=== PATIENT | male | born 1970 | race Caucasian/White ===

== ENCOUNTER 2021-10-21 10:05 | Emergency (ER) | payer MEDICARE, SELFPAY ==
[2021-10-21 10:30] VITALS: BP 134/87; PULSE 79; RESP 16; TEMP 36.7; O2SAT 97; BMI 27.3
--- NOTE | 2021-10-21 14:21 | ED_ITS ---
HPI - URI/Sore Throat General: Chief Complaint: Upper Respiratory Infection Stated Complaint: WEEZING, COUGHING, RUNNY NOSE Time Seen by Provider: 10/21/21 10:14 History of Present Illness: HPI Narrative: Patient had drainage and sinus problems last couple 3 days has wheezing and is upper respiratory when he coughs really hard had a Covid test Monday that was negative MD elicited complaint: cough, nasal congestion and sinus pain Consistency: intermittent Severity: mild Description of mucous: watery Able to tolerate fluids by mouth: Yes Exacerbating factors: nothing Associated symptoms: Reports nasal congestion; Deny abdominal pain, chills, chest pain, fever(s), headache(s), nausea or vomiting Review of Systems Const: Denies: fever(s), chills or body aches Eyes: Denies: change in vision or blurry vision ENMT: Reports: nasal congestion; Denies: throat pain Card: Denies: chest pain or dyspnea on exertion Resp: Reports: non-productive cough and wheezing (Possible); Denies: dyspnea or productive cough GI: Denies: abdominal pain, nausea or vomiting : Denies: difficulty urinating Musc: Denies: extremity pain Skin/Breast: Denies: rash Neuro: Denies: headache(s) Psych: Denies: anxiety or depression Madi/Lymph: Denies: easy bruising PFSH ED PFSH: Social History (Updated 05/08/21 @ 11:47 by Anson Watson LPN) Smoking and tobacco status: former smoker Second hand smoke exposure: No Alcohol intake: never Desire information about alcohol rehabilitation?: No Desire information about substance/drug rehabilitation?: No Physical Exam Const: COMMON NORMALS: no acute distress, average body habitus and patient oriented x3 HENMT: COMMON NORMALS: normocephalic HEAD & SCALP: normal to inspection and normocephalic FACE & SINUS: sinus tenderness maxillary Eye: COMMON NORMALS: conjunctivae normal GENERAL EYE: appearance normal, both eyes and all related structures CONJUNCTIVA: Yes conjunctivae normal Neck/C-Spine: COMMON NORMALS: no JVD Chest: COMMONS NORMALS: normal inspection of the chest Resp: COMMON NORMALS: normal respiratory effort and clear to auscultation bilaterally AUSCULTATION: clear to auscultation bilaterally OTHER: No wheezing noted, patient can make the sound of for squeezing with his upper airway when he breathes out really hard but no wheeze noted in lower respiratory Cardio: COMMON NORMALS: no JVD, regular rate and regular rhythm RATE: regular rate RHYTHM: regular rhythm GI: COMMON NORMALS: Normal to inspection, nondistended, normoactive bowel sounds present Extremity: COMMON NORMALS: normal to inspection and full ROM Neuro: COMMON NORMALS: patient oriented x3 Course Vital Signs: Vital signs: Vital Signs Temperature 98.0 F 10/21/21 10:30 Pulse Rate 79 10/21/21 10:30 Respiratory Rate 16 10/21/21 10:30 Blood Pressure 134/87 10/21/21 10:30 Pulse Oximetry 97 10/21/21 10:30 Discharge Plan Discharge Patient Disposition: Home Clinical Impression: Sinus pain Upper respiratory infection Qualifiers: URI type: unspecified viral URI Qualified Code(s): J06.9 - Acute upper respiratory infection, unspecified Condition: Stable Prescriptions: New Zithromax Z-Manuel 250 mg tablet See Rx Instructions .ROUTE .COMPLEX Qty: 6 RF: 0 Decadron 6 mg tablet 6 mg PO DAILY Qty: 7 RF: 0 No Action fluticasone propionate [Flonase Allergy Relief] 50 mcg/actuation spray,suspension 1 spray intranasal DAILY 5 Days Qty: 16 RF: 0 metformin 500 mg tablet 500 mg PO BID RF: 0 celecoxib 200 mg capsule 200 mg PO BID RF: 0 atorvastatin 40 mg tablet 40 mg PO ONCE RF: 0 gabapentin 100 mg capsule 100 mg PO ONCE RF: 0 lisinopril 10 mg tablet 10 mg PO ONCE RF: 0 hydrochlorothiazide 25 mg tablet 25 mg PO QAM RF: 0 Discharge Orders: Discharge ED (Routine); Ordered 10/21/21 Ordered By: Oniel Espinoza Referrals: Ayana Michel MD [Family Provider] - Discharge Diet: Usual diet Discharge Activity: Increase activity as tolerated Patient Instructions: Sinusitis (ED) Activity Restrictions/Additional Instructions: Follow-up with medical provider as directed. Take medications as prescribed. Return to the ER or your medical provider if condition worsens. Please read and understand discharge instructions. If any questions ask please. Coding Level of Care Code ED Genomics Scientist for Stephanie Montez
== END 2021-10-21 11:32 | disposition home or self-care (01) ==
PROVIDERS: Emergency Provider Nurse Practitioner Family; Family Provider Family Medicine
DX: J06.9 Acute upper respiratory infection, unspecified (principal); R51.9 Headache, unspecified; Z87.891 Personal history of nicotine dependence
CPT/HCPCS: 99281

== ENCOUNTER 2023-01-05 06:54 | Emergency (ER) | payer MEDICARE, SELFPAY ==
[2023-01-05 07:13] VITALS: PULSE 119; RESP 18; TEMP 36.8; O2SAT 97; BMI 26.4
--- NOTE | 2023-01-05 07:22 | XR_ITS ---
WS: [id number] Chest 2 views, 01/05/2023 Clinical Data: COVID Comparison: Two-view chest, 11/06/2012. Findings: No nodules, masses or effusions are seen. The heart is normal. The pulmonary vascularity is not increased. No pneumonia or pneumothorax is seen. The aortic arch and descending thoracic aorta s how mild tortuosity XR/XR chest 2V* [id number] Impression: Atherosclerosis.
--- NOTE | 2023-01-05 07:27 | ED_ITS ---
HPI - COVID General: Chief Complaint: COVID symptoms Stated Complaint: Was exposed to COVID Time Seen by Provider: 01/05/23 07:02 Source: patient Mode of arrival: ambulatory Triage information: Has fever, cough or shortness of breath . Exposure to COVID + person last 14 days History of Present Illness: 52-year-old male presents emergency room with complaint of cough congestion myalgias diarrhea. We seen his in the emergency room yesterday she tested positive for COVID. He states his symptoms began last night Tmax of 100.3 with nonproductive cough. MD complaint: reported COVID exposure and has COVID symptoms Prior covid testing: no COVID 19 common symptoms: positive fever(s), chills, cough, non-productive cough, dyspnea, fatigue, body aches, headache(s), nasal congestion, nausea and diarrhea COVID 19 other sytmptoms: negative chest pain or requiring oxygen Onset (ago): hour(s) Severity: mild Pertinent comorbid conditions: diabetes, hypertension and obesity Treatment prior to arrival: none COVID Results: No Data to Display Review of Systems Const: Reports: fever(s), chills, body aches and fatigue ENMT: Reports: nasal congestion Card: Denies: chest pain, edema, dyspnea on exertion or orthopnea Resp: Reports: dyspnea and non-productive cough GI: Reports: nausea and diarrhea : Denies: flank pain, dysuria, urinary frequency or urinary urgency Skin/Breast: Denies: rash or pruritus Neuro: Reports: headache(s) PFS ED PFSH: Medical History Diabetes type 2, controlled HTN (hypertension) Otitis media Social History Second hand smoke exposure: No Alcohol intake: never Desire information about alcohol rehabilitation?: No Desire information about substance/drug rehabilitation?: No Physical Exam Const: COMMON NORMALS: no acute distress GENERAL APPEARANCE: cooperative and comfortable ORIENTATION/CONSCIOUSNESS: Yes awake, Yes oriented to person, Yes oriented to place and Yes oriented to time HENMT: COMMON NORMALS: normocephalic, atraumatic and hearing grossly normal bilaterally HEAD & SCALP: normocephalic and atraumatic Resp: COMMON NORMALS: normal respiratory effort, No retractions, No use of accessory muscles and clear to auscultation bilaterally AUSCULTATION: clear to auscultation bilaterally Cardio: COMMON NORMALS: regular rate, regular rhythm and No murmurs present (Cardio) RATE: regular rate RHYTHM: regular rhythm GI: COMMON NORMALS: Soft to palpation and No hepatosplenomegaly present AUSCULTATION: Yes normoactive bowel sounds PALPATION: Yes Soft to palpation, No Tenderness to palpation present (GI), No Guarding due to palpation present (GI) and Yes No hepatosplenomegaly present Extremity: COMMON NORMALS: normal to inspection, capillary refill normal, no clubbing, cyanosis or edema, no calf tenderness and no pedal edema Neuro: SENSORIUM/ORIENTATION: Yes oriented to person, Yes oriented to place and Yes oriented to time Skin: COMMON NORMALS: no rashes or lesions noted GENERAL SKIN EXAM: no rashes or lesions noted Course Vital Signs: Vital signs: Vital Signs Temperature 98.2 F 01/05/23 07:13 Pulse Rate 119 H 01/05/23 07:13 Respiratory Rate 18 01/05/23 07:13 Pulse Oximetry 97 01/05/23 07:33 Oxygen Delivery Me thod 01/05/23 07:33 MDM - COVID Medical Decision Making Signs stable sats normal patient is very mild COVID symptoms suspect he will have COVID based on fact that his tested positive yesterday patient be discharged home we will contact him results unavailable he would like take Paxlovid if he does return positive anticipate that he will. Medical Records I reviewed the patient's medical records. Lab Data I reviewed the patient's lab results. No Data to Display Discharge Plan Discharge Patient Disposition: Home Clinical Impression: Contact with and (suspected) exposure to covid-19 Condition: Stable Prescriptions: New Paxlovid (EUA) 300 mg (150 mg x 2)-100 mg tablets,dose pack See Rx Instructions .ROUTE .COMPLEX Qty: 30 0RF Rx Instructions: take TWO 150 mg tablets of nirmatrelvir with ONE 100 mg tablet of ritonavir twice daily for 5 days No Action acetaminophen [Tylenol Extra Strength] 500 mg tablet 500 mg PO Q6H PRN fluticasone propionate [Flonase Allergy Relief] 50 mcg/actuation spray,suspension 1 spray intranasal BID 5 Days Qty: 16 3RF Rx Instructions: administer into each nostril sulfamethoxazole-trimethoprim 800-160 mg tablet 1 tab PO BID Qty: 20 0RF metformin 500 mg tablet 500 mg PO BID atorvastatin 40 mg tablet 40 mg PO ONCE lisinopril 10 mg tablet 10 mg PO ONCE hydrochlorothiazide 25 mg tablet 25 mg PO QAM Discharge Orders: Discharge ED (Routine); Ordered 01/05/23 Ordered By: Hakan Raines Discharge Diet: Usual diet Discharge Activity: Limit activity as instructed Patient Instructions: Opioid Safety, Pain Management Activity Restrictions/Additional Instructions: You were seen today for COVID-like symptoms after known exposure to someone with COVID. Recommend that you self quarantine until released by the health department. Your vital signs were normal as well as your chest x-ray normal today in the emergency room we will contact you with the results of your COVID swab once they are completed. Coding Level of Care Code ED Machine Striper for Stephanie Montez
[2023-01-05 07:33] VITALS: O2SAT 97
[2023-01-05 13:02] LABS: Adenovirus Not Detected (NOT DETECT); Chlamydia Pneumoniae Not Detected (NOT DETECT); Coronavirus 229E,HKU1,NL63,OC4 Not Detected (NOT DETECT); Human Metapneumovirus Not Detected (NOT DETECT); Human Rhinovirus/Enterovirus Not Detected (NOT DETECT); Influenza A Not Detected (NOT DETECT); Influenza A H1 Not Detected (NOT DETECT); Influenza A H1-2009 Not Detected (NOT DETECT); Influenza A H3 Not Detected (NOT DETECT); Influenza B Not Detected (NOT DETECT); Mycoplasma Pneumoniae Not Detected (NOT DETECT); Parainfluenza Virus Type 1 Not Detected (NOT DETECT); Parainfluenza Virus Type 2 Not Detected (NOT DETECT); Parainfluenza Virus Type 3 Not Detected (NOT DETECT); Parainfluenza Virus Type 4 Not Detected (NOT DETECT); Respiratory Syncytial Virus A Not Detected (NOT DETECT); Respiratory Syncytial Virus B Not Detected (NOT DETECT); SARS-COV-2 Detected (NOT DETECT)
--- NOTE | 2023-01-06 15:19 | PC.SOCIAL ---
Addendum entered by Delores Castanon 01/10/23 17:28: Patient had an appointment scheduled with Dr. Woods to establish care - patient did attend appointment. Original Note: PCP Appt. Contacted pt and offered PCP appointment. Patient's reports that he used to see Dr. Starr at [facility], but there has been issues and they will not see. She would appreciate the help if we could. Contacted [facility] and they will not schedule patient. Appt set up with Dr. Woods January 10 at 1115. Patient's notified of appt.
== END 2023-01-05 07:43 | disposition home or self-care (01) ==
PROVIDERS: Emergency Provider Family Medicine
DX: U07.1 COVID-19 (principal); E11.9 Type 2 diabetes mellitus without complications; I10 Essential (primary) hypertension; Z79.84 Long term (current) use of oral hypoglycemic drugs
CPT/HCPCS: 71046; 87635; 99284

== ENCOUNTER → 2023-01-10 12:03 | Outpatient (BNVA) | payer MEDICARE, SELFPAY | PROVIDERS: Visit Provider Family Medicine | DX: E11.9 Type 2 diabetes mellitus without complications (principal) | CPT/HCPCS: 80053; 80061; 83036; 85025 ==

== ENCOUNTER → 2023-05-05 09:53 | Outpatient (BNVA) | payer MEDICARE, SELFPAY | PROVIDERS: Visit Provider Family Medicine | DX: E11.9 Type 2 diabetes mellitus without complications (principal) | CPT/HCPCS: 80048; 83036 ==

== ENCOUNTER 2023-07-21 14:20 | Emergency (ER) | payer MEDICARE, MEDICAID, SELFPAY ==
[2023-07-21 14:23] VITALS: BP 168/83; PULSE 109; RESP 16; TEMP 36.7; O2SAT 97; BMI 26.9
--- NOTE | 2023-07-21 18:36 | ED_ITS ---
HPI - Back Pain/Injury General: Chief Complaint: Back Pain/Injury Stated Complaint: abd pain (back) Time Seen by Provider: 07/21/23 18:18 History of Present Illness: 52-year-old male says that 2 nights ago he bent over to lift up an old table. He bent at the waist and put his arms around it lifting in an awkward position. The next day when he woke up he had some tingling going down into his third fourth and fifth fingers in the left arm as well as spasm in his neck and upper back. Associated symptoms: Deny abdominal pain, chills, difficulty walking, dysuria, fever(s) or syncope Review of Systems General: Reports: 10 or more systems reviewed and unremarkable except in HPI and below Const: Denies: fever(s), chills or body aches Eyes: Denies: change in vision ENMT: Denies: throat pain Card: Denies: chest pain, edema or syncope Resp: Denies: dyspnea or productive cough GI: Denies: abdominal pain : Denies: flank pain, dysuria or urinary frequency Musc: Denies: extremity swelling Skin/Breast: Denies: rash or erythema Neuro: Denies: headache(s), weakness in extremities, lack of coordination or difficulty walking PFSH ED PFSH: Medical History Diabetes type 2, controlled HTN (hypertension) Otitis media Surgical History History of surgery on arm History of surgery on lower extremity Social History Smoking and tobacco status: never smoked Second hand smoke exposure: No Alcohol intake: never Desire information about alcohol rehabilitation?: No Substance/Drug Use: never Desire information about substance/drug rehabilitation?: No Physical Exam Const: COMMON NORMALS: no limitations, alert and well nourished EXAM LIMITATIONS: no altered mental status HENMT: COMMON NORMALS: normocephalic, atraumatic and external ears normal HEAD & SCALP: normocephalic and atraumatic EXTERNAL EAR: Yes external ears normal MOUTH: no muffled voice Neck/C-Spine: COMMON NORMALS: no JVD GENERAL: Yes normal visual inspection and Yes trachea midline OTHER: Myofascial spasm in the trapezius region. Mild tenderness in the periscapular muscles as well on the left side. Palpation of the midline of the cervical spine is nontender. Range of motion in the neck is limited. Axial loading through the neck does not cause any increased pain. Ear to shoulder maneuvers as well as rotation does not seem to exacerbate his radicular symptoms. He is able to abduct and abduct his fingers bilaterally. He can make a fist and extend his wrist. His radial pulses 2+. He has subjective tingling in his third fourth and fifth fingers on the left side. Resp: COMMON NORMALS: normal respiratory effort and No use of accessory muscles Cardio: COMMON NORMALS: no JVD, regular rate and regular rhythm RATE: regular rate RHYTHM: regular rhythm Extremity: COMMON NORMALS: normal to inspection Neuro: COMMON NORMALS: moves all extremities, no focal motor deficits and no sensory deficits noted SENSORIUM/ORIENTATION: Yes alert SPEECH: speech normal Psych: COMMON NORMALS: mental status grossly normal, Normal thought process present, cooperative, normal affect and speech normal SPEECH: Yes normal speech THOUGHT PROCESS: Normal thought process present Skin: COMMON NORMALS: no rashes or lesions noted, turgor normal and no jaundice GENERAL SKIN EXAM: no rashes or lesions noted and turgor normal Course Vital Signs: Vital signs: Vital Signs Temperature 98.1 F 07/21/23 14:23 Pulse Rate 109 H 07/21/23 14:23 Respiratory Rate 16 07/21/23 14:23 Blood Pressure 168/83 07/21/23 14:23 Pulse Oximetry 97 07/21/23 14:23 Oxygen Delivery Me thod Room Air 07/21/23 14:23 MDM - Back Pain/Injury Medical Decision Making Suspected acute cervical radiculopathy. He is diabetic. However, he thinks a steroid shot would be helpful. He does have medication to control his diabetes and can modify his diet. I think this is reasonable but I will use a 6 mg dose. I will also give him muscle relaxer and a Toradol shot here. No red flags. Usual care for acute cervical radiculopathy. Follow-up PCP. No radiology studies performed this visit Discharge Plan Discharge Patient Disposition: Home Clinical Impression: Cervical radiculopathy at C7, Acute cervical myofascial strain Condition: Stable Prescriptions: New tizanidine 4 mg capsule 4 mg PO BID PRN (Reason: muscle spasticity) Qty: 14 0RF naproxen 250 mg tablet 250 mg PO BID Qty: 14 0RF Discontinued ibuprofen 200 mg capsule 400 mg PO Q6H PRN cephalexin 500 mg capsule 500 mg PO BID Qty: 14 0RF amoxicillin 875 mg tablet 875 mg PO BID 10 Days Qty: 20 0RF No Action acetaminophen [Tylenol Extra Strength] 500 mg tablet 500 mg PO Q6H PRN metformin 500 mg tablet 1,000 mg PO BID Qty: 360 1RF lisinopril 10 mg tablet 10 mg PO ONCE Qty: 90 1RF hydrochlorothiazide 25 mg tablet 25 mg PO QAM Qty: 90 1RF atorvastatin 40 mg tablet 40 mg PO ONCE Qty: 90 1RF cetirizine [Zyrtec] 10 mg tablet 10 mg PO DAILY Qty: 30 0RF glipizide 5 mg tablet 5 mg PO DAILY Qty: 90 1RF Discharge Orders: Discharge ED (Routine); Ordered 07/21/23 Ordered By: Yash Umana Referrals: Davi Woods MD [Primary Care Provider] - 7-10 days (f/u cervical radiculopathy) Discharge Activity: Increase activity as tolerated Patient Instructions: Cervical Radiculopathy (ED), Acute Neck Pain (ED), Pain Management Coding Level of Care Code ED Hand Buffing Wheel Former for Stephanie Montez
[2023-07-21] MEDS: cyclobenzaprine 10 mg Tablet PO (18:52)
[2023-07-21] MEDS: ketorolac 30 mg/mL INJ IM (18:52)
[2023-07-21] MEDS: dexamethasone 10 mg/mL INJ 6 MG IM (18:52)
[2023-07-21 18:59] VITALS: BP 161/91; PULSE 71; RESP 17; O2SAT 96
[2023-07-21 19:17] VITALS: BP 135/93; PULSE 83; O2SAT 99
== END 2023-07-21 19:18 | disposition home or self-care (01) ==
PROVIDERS: Emergency Provider Emergency Medicine; PCP Family Medicine
DX: M54.12 Radiculopathy, cervical region (principal); S16.1XXA Strain of muscle, fascia and tendon at neck level, initial encounter; Z79.84 Long term (current) use of oral hypoglycemic drugs; E11.9 Type 2 diabetes mellitus without complications; I10 Essential (primary) hypertension; X50.0XXA Overexertion from strenuous movement or load, initial encounter
CPT/HCPCS: 96372; 99284; J1100; J1885

== ENCOUNTER 2023-07-25 08:12 | Outpatient (CLI) | payer MEDICARE, SELFPAY ==
--- NOTE | 2023-07-25 08:18 | XRR_ITS ---
PROCEDURE INFORMATION: Exam: XR Cervical Spine Exam date and time: 07/25/2023 8:37 AM Age: 52 years old Clinical indication: Radicular pain (radiculopathy); Cervical region; Patient HX: Patient states they have a pinched nerve and their left arm is numb; Additional info: Cervical radiculopathy TECHNIQUE: Imaging protocol: Radiologic exam of the cervical spine. Views: 2 or 3 views. COMPARISON: CT cervical spin wo con* [id number] 01/07/2019 2:55 PM FINDINGS: Bones/joints: There is multilevel bridging anterior osteophyte formation consistent with diffuse idiopathic skeletal hyperostosis. There is sxny-[id number] multilevel degenerative disc disease. There is no evidence of acute fracture. Gross anatomic alignment is maintained. Soft tissues: Unremarkable. XR/XR cervical spine 3V* [id number] IMPRESSION: 1. Findings suggestive of diffuse idiopathic skeletal hyperostosis. 2. Plyg-qs-vyojhzru degenerative disc disease.
== END 2023-07-25 08:13 | disposition home or self-care (01) ==
PROVIDERS: PCP Family Medicine; Visit Provider Family Medicine
DX: M50.10 Cervical disc disorder with radiculopathy, unspecified cervical region (principal)
CPT/HCPCS: 72040

== ENCOUNTER → 2023-08-04 13:41 | Outpatient (BNVA) | payer MEDICARE, SELFPAY | PROVIDERS: PCP Family Medicine; Visit Provider Family Medicine | DX: E11.9 Type 2 diabetes mellitus without complications (principal); M54.12 Radiculopathy, cervical region | CPT/HCPCS: 80048; 83036 ==

== ENCOUNTER 2023-08-11 17:42 | Emergency (ER) | payer MEDICARE, SELFPAY ==
[2023-08-11 17:47] VITALS: BP 184/102; PULSE 102; RESP 17; TEMP 37; O2SAT 97; BMI 27.5
--- NOTE | 2023-08-11 17:52 | ECG_ITS ---
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 Measurements Intervals [place] Rate: 102 P: 65 MI: 159 QRS: 78 QRSD: 86 T: 21 QT: 335 QTc: 437 Interpretive Statements SINUS TACHYCARDIA NONSPECIFIC T-WAVE ABNORMALITY ABNORMAL RHYTHM ECG No previous ECG available for comparison Electronically Signed On 08-11-2023 20:27:18 CDT by Christine Estevez M.D. [id number]
--- NOTE | 2023-08-11 17:57 | XRR_ITS ---
PROCEDURE INFORMATION: Exam: XR Chest Exam date and time: 08/11/2023 6:05 PM Age: 52 years old Clinical indication: Chest pressure; Patient HX: Chest pain TECHNIQUE: Imaging protocol: Radiologic exam of the chest. Views: 1 view. COMPARISON: CR XR chest 2V* [id number] 01/05/2023 7:27 AM FINDINGS: Lungs: Unremarkable. No consolidation. Pleural spaces: Unremarkable. No pleural effusion. No pneumothorax. Heart/Mediastinum: Unremarkable. No cardiomegaly. Bones/joints: Unremarkable. XR/XR chest 1V portable [id number] IMPRESSION: No acute findings.
--- NOTE | 2023-08-11 18:14 | W.ED.CHESTPA ---
HPI - Chest Pain General: Chief Complaint: Chest Pain Stated Complaint: Chest pains Time Seen by Provider: 08/11/23 17:56 Source: patient Mode of arrival: ambulatory Limitations: no limitations History of Present Illness: 52-year-old male states he has been having neck pain its been going on for little over a month he states he gets pain shooting down his left arm he saw his primary care physician who has him scheduled for an MRI in 2 weeks he states that today though he started having some left-sided chest pain states pain was sharp in nature and since resolved he is unsure if it is from his neck or 50 different niece states he still mainly concerned about the neck pain he has been having. Denies any shortness of breath denies any nausea or vomiting. Associated symptoms: Deny abdominal pain, dyspnea, fever(s), nausea or vomiting Review of Systems Const: Denies: fever(s) or chills ENMT: Denies: throat pain or dental pain Card: Reports: chest pain Resp: Denies: dyspnea GI: Denies: abdominal pain, nausea, vomiting or diarrhea Musc: Reports: neck pain; Denies: back pain Skin/Breast: Denies: rash Neuro: Denies: headache(s) PFSH ED PFSH: Medical History Diabetes type 2, controlled HTN (hypertension) Otitis media Surgical History History of surgery on arm History of surgery on lower extremity Social History Smoking and tobacco/nicotine status: never used tobacco/nicotine Second hand smoke exposure: No Alcohol intake: never Substance/Drug Use: never Course Vital Signs: Vital signs: Vital Signs Temperature 98.6 F 08/11/23 17:47 Pulse Rate 77 08/11/23 21:00 Respiratory Rate 16 08/11/23 21:00 Blood Pressure 144/101 08/11/23 21:00 Pulse Oximetry 98 08/11/23 21:00 Oxygen Delivery Me thod Room Air 08/11/23 18:25 MDM - Chest Pain Medical Decision Making Patient presents here with chest pains atypical in nature troponins here are negative. He does have chronic neck pain he is scheduled to have MRI is no signs of cord compression here he is to return if worsening he understands agrees to plan. Medical Records I reviewed the patient's medical records. Lab Data I reviewed the patient's lab results. 08/11/23 18:05 08/11/23 18:05 Radiology Impressions Chest X-Ray 08/11/23 17:57 IMPRESSION: No acute findings. Laboratory Results WBC 12.06 10^3/uL (3.29-11.43) H 08/11/23 18:05 RBC 5.57 10^6/uL (3.85-5.65) 08/11/23 18:05 Hgb 15.50 g/dL (11.27-16.99) 08/11/23 18:05 Hct 46.6 % (37-53) 08/11/23 18:05 MCV 83.7 fl (82-101) 08/11/23 18:05 MCH 27.8 pg (27-33) 08/11/23 18:05 MCHC 33.3 g/dL (30-55) 08/11/23 18:05 RDW 13.2 % (12.1-15.1) 08/11/23 18:05 Plt Count 290 10^3/cmm (157-399) 08/11/23 18:05 MPV 9.7 fL (7.4-10.4) 08/11/23 18:05 Neut % (Auto) 62.9 % 08/11/23 18:05 Lymph % (Auto) 28.6 % 08/11/23 18:05 [place] % (Auto) 5.5 % 08/11/23 18:05 Eos % (Auto) 1.7 % 08/11/23 18:05 Baso % (Auto) 0.6 % 08/11/23 18:05 Neut # (Auto) 7.58 10^3/uL (1.8-7.7) 08/11/23 18:05 Lymph # (Auto) 3.5 10^3/uL (0.8-4.8) 08/11/23 18:05 [place] # (Auto) 0.7 10^3/uL (0.2-0.9) 08/11/23 18:05 Eos # (Auto) 0.2 10^3/uL (0.0-0.8) 08/11/23 18:05 Baso # (Auto) 0.1 10^3/uL (0.0-0.1) 08/11/23 18:05 Nucleated RBC % (auto) 0 % 08/11/23 18:05 Nucleated RBCs # 0.0 /100WBC 08/11/23 18:05 Sodium 138 mmol/L (136-145) 08/11/23 18:05 Potassium 3.8 mmol/L (3.5-5.1) 08/11/23 18:05 Chloride 98 mmol/L (98-107) 08/11/23 18:05 Carbon Dioxide 28 mmol/L (22-29) 08/11/23 18:05 Anion Gap 15.8 (5-19) 08/11/23 18:05 BUN 17 mg/dL (6-20) 08/11/23 18:05 Creatinine 0.7 mg/dL (0.7-1.2) 08/11/23 18:05 GFR Calculation 118.4 mL/min (90-130) 08/11/23 18:05 Glucose 242 mg/dL (65-115) H 08/11/23 18:05 Calculated Osmolality 296 mOsm/kg (285-295) H 08/11/23 18:05 Calcium 9.6 mg/dL (8.5-10.5) 08/11/23 18:05 Total Bilirubin 0.5 mg/dL (0.15-1.2) 08/11/23 18:05 AST 34 U/L (0-40) 08/11/23 18:05 ALT 75 U/L (0-41) H 08/11/23 18:05 Alkaline Phosphatase 120 U/L (40-130) 08/11/23 18:05 Troponin T Baseline 16 ng/L (0-15) H 08/11/23 18:05 Troponin T 120 Minute 13.84 ng/L (0-15) 08/11/23 19:59 Delta Troponin T -2.16 ABS# (0-10) L 08/11/23 19:59 Total Protein 7.7 g/dL (6.6-8.7) 08/11/23 18:05 Albumin 5.0 g/dL (3.5-5.2) 08/11/23 18:05 Globulin 2.7 g/dL (1.3-4.6) 08/11/23 18:05 All radiology interpretation(s) finalized by discharge EKG Data EKG 1: I personally reviewed and interpreted this EKG as follows: EKG interpretation date: 08/11/23 EKG interpretation time: 17:52 Interpretation: sinus tach hr [address] or t wave abnormalities qrs 86 qtc 394 Discharge Plan Discharge Patient Disposition: Home Clinical Impression: Chest pain Condition: Stable Prescriptions: New hydrocodone-acetaminophen 5-325 mg tablet 1 tab PO Q6H PRN (Reason: pain) Qty: 14 0RF No Action metformin 500 mg tablet 1,000 mg PO BID Qty: 360 1RF lisinopril 10 mg tablet 10 mg PO ONCE Qty: 90 1RF hydrochlorothiazide 25 mg tablet 25 mg PO QAM Qty: 90 1RF atorvastatin 40 mg tablet 40 mg PO ONCE Qty: 90 1RF cetirizine [Zyrtec] 10 mg tablet 10 mg PO DAILY Qty: 30 0RF ibuprofen 200 mg capsule 200 mg PO Q6H PRN gabapentin 100 mg capsule 200 mg PO BID Qty: 60 1RF glipizide 5 mg tablet 5 mg PO DAILY Qty: 90 1RF tizanidine 4 mg capsule 4 mg PO BID PRN (Reason: muscle spasticity) Qty: 14 0RF naproxen 250 mg tablet 250 mg PO BID Qty: 14 0RF Discharge Orders: Discharge ED (Routine); Ordered 08/11/23 Ordered By: Melany Kimbrough Referrals: Davi Woods MD [Primary Care Provider] - 1-3 days Discharge Diet: Advance as tolerated Discharge Activity: Resume usual activity Patient Instructions: Chest Pain (ED) Coding Level of Care Code ED Drafter Engineering for Stephanie Montez
[2023-08-11 18:25] VITALS: BP 159/103; PULSE 106; RESP 16; O2SAT 95
[2023-08-11 18:28] LABS: Basophils # 0.1 10^3/uL (0.0-0.1); Basophils % 0.6 %; Eosinophils # 0.2 10^3/uL (0.0-0.8); Eosinophils % 1.7 %; Hematocrit 46.6 % (37-53); Lymphocytes # 3.5 10^3/uL (0.8-4.8); Lymphocytes % 28.6 %; Mean Corpuscular HGB Conc 33.3 g/dL (30-55); Mean Corpuscular Hemoglobin 27.8 pg (27-33); Mean Corpuscular Volume 83.7 fl (82-101); Mean Platelet Volume 9.7 fL (7.4-10.4); Monocytes # 0.7 10^3/uL (0.2-0.9); Monocytes % 5.5 %; Neutrophils # 7.58 10^3/uL (1.8-7.7); Neutrophils % 62.9 %; Nucleated Red Blood Cells % 0 %; Platelet Count 290 10^3/cmm (157-399); Red Blood Count 5.57 10^6/uL (3.85-5.65); Red Cell Distribution Width 13.2 % (12.1-15.1); White Blood Count 12.06 10^3/uL (3.29-11.43)
[2023-08-11 18:29] VITALS: RESP 16; O2SAT 97
[2023-08-11] MEDS: morphine 4 mg/mL SDV 1 mL IVP (18:29)
[2023-08-11] MEDS: ondansetron 2 mg/ML SDV 2 mL 4 MG IVP (18:29)
[2023-08-11 18:31] LABS: Troponin(5th) Baseline 16 ng/L (0-15)
[2023-08-11 18:37] LABS: Alanine Aminotransferase 75 U/L (0-41); Alkaline Phosphatase 120 U/L (40-130); Aspartate Amino Transferase 34 U/L (0-40); Blood Urea Nitrogen 17 mg/dL (6-20); Calcium 9.6 mg/dL (8.5-10.5); Carbon Dioxide 28 mmol/L (22-29); Chloride 98 mmol/L (98-107); Globulin 2.7 g/dL (1.3-4.6); Glomerular Filtration Rate 118.4 mL/min (90-130); Glucose 242 mg/dL (65-115); Osmolality Calculated 296 mOsm/kg (285-295); Sodium 138 mmol/L (136-145); Total Bilirubin 0.5 mg/dL (0.15-1.2); Total Protein 7.7 g/dL (6.6-8.7)
[2023-08-11 18:38] LABS: Anion Gap 15.8 (5-19); Potassium 3.8 mmol/L (3.5-5.1)
[2023-08-11 19:15] VITALS: BP 145/94; PULSE 87; RESP 25; O2SAT 89
[2023-08-11 20:23] LABS: Troponin 5 2HR 13.84 ng/L (0-15); Troponin 5 2HR Delta -2.16 ABS# (0-10)
[2023-08-11 21:00] VITALS: BP 144/101; PULSE 77; RESP 16; O2SAT 98
== END 2023-08-11 21:03 | disposition home or self-care (01) ==
PROVIDERS: Emergency Provider Emergency Medicine; PCP Family Medicine
DX: R07.9 Chest pain, unspecified (principal); Z79.84 Long term (current) use of oral hypoglycemic drugs; E11.9 Type 2 diabetes mellitus without complications; I10 Essential (primary) hypertension
CPT/HCPCS: 71045; 80053; 84484; 85025; 93005; 96374; 96375; 99285; J2270; J2405

== ENCOUNTER 2023-09-25 15:28 | Outpatient (CLI) | payer MEDICARE, MEDICAID, SELFPAY ==
--- NOTE | 2023-09-25 16:00 | MR_ITS ---
WS: [id number] MRI CERVICAL SPINE NONCONTRAST HISTORY: radiculopathy, hyperostosis COMPARISON: None available. Technique: Multiplanar, multisequence noncontrast imaging of the cervical spine. LEFT curvature cervical spine. Quality of this examination is compromised by technique and motion artifact. Reversal of the normal cervical lordosis. Osteophytes and disc disease encroaching upon the central c anal. No signal abnormalities are appreciated within the cord. Craniocervical junction appears appropriate. Volume loss of the cerebellum. C2-C3: Osteophytic ridging and annular disc bulging and facet arthritis. Mild central and LEFT forami nal stenosis. C3-C4: Diffuse annular disc bulging with a central disc protrusion. Bilateral disc osteophyte complex es and moderate facet arthritis. Moderate central and bilateral foraminal stenosis. C4-C5: Annular disc bulging with osteophytic ridging and facet arthritis. Disc osteophyte complexes. Moderate central and bilateral foraminal stenosis. C5-C6: Diffuse annular disc bulging with large central disc protrusion effacing CSF. Large disc osteo phyte complexes and facet arthritis. Moderate to severe central with bilateral foraminal stenosis. C6-C7: Annular disc bulging with a large LEFT paracentral and proximal foraminal disc protrusion. Def ormity and mass effect upon the thecal sac. Bilateral facet joint arthritis and osteophytes. Severe c entral with moderate to severe foraminal stenosis. C7-T1: Marked annular disc bulging with a large central to LEFT paracentral disc protrusion. Disc ost eophyte complexes and bilateral facet arthritis. Moderate to severe central and bilateral foraminal s tenosis. Paraspinal soft tissue are normal. IMPRESSION: 1. Severe degenerative disc disease and facet arthritis and osteophytosis throughout the cervical spi ne at multiple levels. 2. C2-3: Mild central and LEFT foraminal stenosis. 3. C3-4 and C4-5: Moderate central and bilateral foraminal stenosis with disc osteophyte complexes. 4. C5-6: Moderate to severe central with bilateral foraminal stenosis. Osteophytes and a large centra l disc protrusion contributing to the stenosis. 5. C6-7: Severe central with moderate to severe foraminal stenosis. Large LEFT paracentral and proxim al foraminal disc protrusion. 6. C7-T1: Large central to LEFT paracentral disc protrusion moderate to severe central and bilateral foraminal stenosis.
== END 2023-09-25 15:29 | disposition home or self-care (01) ==
LOC: RAD 15:29
PROVIDERS: Visit Provider Family Medicine
DX: M54.12 Radiculopathy, cervical region (principal); M50.33 Other cervical disc degeneration, cervicothoracic region; M48.02 Spinal stenosis, cervical region; M47.813 Spondylosis without myelopathy or radiculopathy, cervicothoracic region; M25.78 Osteophyte, vertebrae; M85.80 Other specified disorders of bone density and structure, unspecified site; R20.0 Anesthesia of skin; R20.2 Paresthesia of skin
CPT/HCPCS: 72141

== ENCOUNTER → 2023-11-16 14:20 | Outpatient (BNVA) | payer MEDICARE, SELFPAY | PROVIDERS: PCP Family Medicine; Referring Provider Family Medicine; Visit Provider Orthopaedic Surgery | DX: M48.02 Spinal stenosis, cervical region (principal); G99.2 Myelopathy in diseases classified elsewhere; R53.83 Other fatigue; R20.0 Anesthesia of skin | CPT/HCPCS: 99204 ==

== ENCOUNTER → 2023-11-17 15:11 | Outpatient (BNVA) | payer MEDICARE, SELFPAY | PROVIDERS: PCP Family Medicine; Visit Provider Family Medicine | DX: E11.9 Type 2 diabetes mellitus without complications (principal) | CPT/HCPCS: 80053; 83036 ==

== ENCOUNTER → 2024-02-20 10:39 | Outpatient (BNVA) | payer MEDICARE, SELFPAY | PROVIDERS: PCP Family Medicine; Referring Provider Orthopaedic Surgery; Visit Provider Specialist | DX: R20.0 Anesthesia of skin (principal); R20.2 Paresthesia of skin; G56.01 Carpal tunnel syndrome, right upper limb; G56.23 Lesion of ulnar nerve, bilateral upper limbs | CPT/HCPCS: 95911 ==

== ENCOUNTER → 2024-04-08 13:46 | Outpatient (BNVA) | payer MEDICARE, SELFPAY | PROVIDERS: PCP Family Medicine; Visit Provider Family Medicine | DX: E11.9 Type 2 diabetes mellitus without complications (principal) | CPT/HCPCS: 80048; 83036 ==

== ENCOUNTER → 2024-04-18 14:39 | Outpatient (BNVA) | payer MEDICARE, SELFPAY | PROVIDERS: PCP Family Medicine; Visit Provider Orthopaedic Surgery | DX: Z09 Encounter for follow-up examination after completed treatment for conditions other than malignant neoplasm (principal) | CPT/HCPCS: 99214 ==

== ENCOUNTER → 2024-07-08 15:44 | Outpatient (BNVA) | payer MEDICARE, SELFPAY | PROVIDERS: PCP Family Medicine; Visit Provider Family Medicine | DX: E11.9 Type 2 diabetes mellitus without complications (principal) | CPT/HCPCS: 80053; 83036 ==

== ENCOUNTER → 2024-08-16 08:04 | Outpatient (BNVA) | payer MEDICARE, SELFPAY | PROVIDERS: PCP Family Medicine; Visit Provider Student in an Organized Health Care Education/Training Program | DX: G56.23 Lesion of ulnar nerve, bilateral upper limbs (principal); R20.0 Anesthesia of skin; R20.2 Paresthesia of skin; G56.03 Carpal tunnel syndrome, bilateral upper limbs | CPT/HCPCS: 20600; 73130; 99204; J3301; J3490 ==

== ENCOUNTER → 2024-11-04 15:50 | Outpatient (BNVA) | payer BC, SELFPAY | PROVIDERS: PCP Family Medicine; Visit Provider Family Medicine | DX: E11.9 Type 2 diabetes mellitus without complications (principal) | CPT/HCPCS: 83036 ==

== ENCOUNTER → 2025-01-27 11:56 | Outpatient (BNVA) | payer BC, SELFPAY | PROVIDERS: PCP Family Medicine; Visit Provider Family Medicine | DX: E11.9 Type 2 diabetes mellitus without complications (principal) | CPT/HCPCS: 80048; 83036 ==

== ENCOUNTER → 2025-04-28 14:40 | Outpatient (BNVA) | payer BC, SELFPAY | PROVIDERS: PCP Family Medicine; Visit Provider Family Medicine | DX: E11.9 Type 2 diabetes mellitus without complications (principal) | CPT/HCPCS: 80053; 83036 ==

== ENCOUNTER → 2025-08-01 14:48 | Outpatient (BNVA) | payer BC, SELFPAY | PROVIDERS: PCP Family Medicine; Visit Provider Family Medicine | DX: E11.9 Type 2 diabetes mellitus without complications (principal) | CPT/HCPCS: 80053; 83036 ==